=== PATIENT | female | born 1930 | race Caucasian/White ===

== ENCOUNTER → 2017-04-23 | Day surgery (SDC) | payer MEDICARE, BC ==
[~2017-04-23] VITALS: Ht 162.6 cm; Wt 92.6 kg
[~2017-04-23] MED LIST: ADVAIR DISKUS1 DS1 IH; ALBUTEROL SULFAT3 M3 IH; ASPIRIN E.C. 8181 MG PO; ATROVENT I0.2 MG/1 M IH; CARDIZEM CD 18180 MG PO; COUMADIN 3MG3 MG/TAB PO; COUMADIN3 MG PO; COUMADIN4 MG PO; COZAAR100 MG PO; DILTIAZEM CD180 MG PO; FUROSEMIDE40 MG PO; KLONOPIN 0.5MG0.5 MG PO; LASIX 80MG TABL80 MG PO; LISINOPRIL20 MG PO; MULTI VITAMINS1 TAB PO; NORCO 325 MG-51 TAB PO; PREDNISONE 2.52.5 MG PO; TYLENOL 325MG325 MG PO; VITAMIN C500 MG PO; VITAMIND3 5000 PO; ZOFRAN ODT4 MG PO; ZYLOPRIM 300MG300 MG PO
[2017-04-23 16:23] VITALS: BP 134/49; PULSE 70; TEMP 98
[2017-04-23 17:30] VITALS: BP 143/54; PULSE 70; TEMP 97.5
[2017-04-23 18:51] VITALS: BP 143/54; PULSE 70; TEMP 97.5
[2017-04-23 18:52] VITALS: BP 139/60; PULSE 71; TEMP 97.4
== END ==
LOC: SDCO 14:41
DX: K80.50 Calculus of bile duct without cholangitis or cholecystitis without obstruction (principal); D64.9 Anemia, unspecified; J45.909 Unspecified asthma, uncomplicated; I48.0 Paroxysmal atrial fibrillation; I11.0 Hypertensive heart disease with heart failure; I50.9 Heart failure, unspecified; Z79.01 Long term (current) use of anticoagulants; Z90.49 Acquired absence of other specified parts of digestive tract; Z96.652 Presence of left artificial knee joint; Z95.0 Presence of cardiac pacemaker
CPT/HCPCS: C1769; J2250; J2405; J2704; J3010; J7030; Q9967